=== PATIENT | female | born 2000 | race Caucasian/White ===

== ENCOUNTER 2023-12-30 11:57 | Emergency (ER) | payer BC, SELFPAY ==
[2023-12-30 11:57] VITALS: BMI 24.0
[2023-12-30 11:58] VITALS: BP 160/96
--- NOTE | 2023-12-30 12:25 | ED.GENMED ---
History of Present Illness
General
Chief Complaint: Head Injury
Time Seen by Provider: 12/30/23 12:04
History of Present Illness
History of Present Illness:
23-year-old female with history of prior concussion presenting to the emergency department for head injury. Patient reports early Monday morning, she was struck in the head by accident by a tree branch. Has not that she has intoxicated at the time
and when she woke up felt off and foggy. Notes send she has had some light sensitivity, nausea, head pain. She called her doctor who advised that she come to the hospital. Prior to arrival, she noted some tingling sensation to her right lower
extremity which concerned her and prompted her to come as well. Denies weakness to her extremities. Denies neck pain. Denies visual changes. Notes several concussions in the past. Denies fever. Denies additional acute medical complaints
Past History
Social History
Tobacco: Non-smoker
Alcohol: None
Drug: None
Phy Exam
Physical Exam
Physical Exam:
General: Well-appearing, no clinical signs of dehydration, nontoxic and in no acute distress
HEENT: protecting airway
Head: Small palpable hematoma to the right parietal scalp
Neck: appears supple
CV: Normal heart rate, regular rhythm
Resp: No accessory muscle use, no increased work of breathing, lungs clear to auscultation bilaterally
Abd: No distention
Extremities: No deformities, no swelling, no erythema. Distal pulses and sensation intact
Neuro: alert, no focal neurologic deficit
: deferred
Rectal: deferred
Psych: Normal affect
Skin: Intact
Course
Orders/Labs/Results
Orders:
Orders
12/30/23 12:15
CT Head W/o Iv Contrast Urgent
Comment:
Reason For Exam: struck in back of head, post-concussive symptoms
Vital Signs
Initial and Last Documented VS:
Initial Vital Signs
Temp Pulse Resp BP Pulse Ox
98.7 F 115 16 160/96 100
12/30/23 11:58 12/30/23 11:58 12/30/23 11:58 12/30/23 11:58 12/30/23 11:58
Last Documented Vital Signs
Temp Pulse Resp BP Pulse Ox
98.7 F 115 16 160/96 100
12/30/23 11:58 12/30/23 11:58 12/30/23 11:58 12/30/23 11:58 12/30/23 11:58
MDM/Problems Addressed
MDM/Problems Addressed:
23-year-old female presenting to the emergency department after a head injury. Vital signs on arrival are normal.
On exam patient is well-appearing, no acute distress or discomfort. Mild palpable hematoma, otherwise no significant signs of trauma. Suspect postconcussive syndrome. Given prior history of concussion and persistence of symptoms, will screen with
CT brain imaging. Patient does report some tingling to her right lower extremity, suspect unrelated. No neurovascular compromise on examination to the extremity.
13:40 - CT brain without acute intracranial abnormality. Continue to suspect postconcussive syndrome. At this time feel stable for discharge with continued outpatient supportive therapy. Brain rest advised. Return precautions discussed and
patient verbalized understanding
*Critical Care Note
Total Time (30-74mins, 75-104mins- exclusive of procedures): Not Applicable
ED Attending Note
-
Portions of this chart may have been created with voice recognition software.� Occasional wrong word or��sound alike� substitutions may have occurred due to the inherent limitations of voice recognition software.
Discharge Plan
Departure
Prescriptions:
No Action
nabumetone 500 MG tablet
1,000 mg PO DAILY
Referrals:
Daniella Stubbs [Family Provider] -
Interventions
Interventions:
*Risk Screen - Suicide Last Done: 12/30/23 12:02
*General Assessment Last Done: 12/30/23 12:10
*Neglect/Abuse Screening Last Done: 12/30/23 12:02
ED- Fall Risk Assessment Last Done: 12/30/23 12:10
*ED COVID-19 Vaccine History Last Done: 12/30/23 12:01
ED- Neurological Assessment Last Done: 12/30/23 12:10
ED-Skin Assessment Last Done: 12/30/23 12:10
Discharge Date and Time
Print Language: SAMOAN
[2023-12-30 13:49] VITALS: BP 124/87
== END 2023-12-30 14:11 | disposition home or self-care (01) ==
LOC: EMR 11:57
PROVIDERS: EMERGENCY PHYSICIAN Student in an Organized Health Care Education/Training Program
DX: S00.03XA Contusion of scalp, initial encounter (principal); R20.2 Paresthesia of skin; W22.09XA Striking against other stationary object, initial encounter
CPT/HCPCS: 99284; 70450

== ENCOUNTER 2024-11-07 14:04 | Emergency (ER) | payer BC, SELFPAY ==
[2024-11-07 14:08] VITALS: BP 145/99
[2024-11-07 14:28] LABS: Hematocrit 39.4 % (37.0-47.0); Hemoglobin 13.1 g/dL (12.0-16.0); Mean Corp Hgb Conc. 33.2 g/dL (33.0-37.0); Mean Corpuscular Volume 84.4 fL (81.0-99.0); Nucleated Red Blood Cells % 0 %; Platelet Count 228 10^3/uL (130-400); Red Cell Dist. Width 12.5 % (11.5-14.5)
[2024-11-07 14:29] LABS: Urine Character Clear (Clear)
[2024-11-07 14:38] LABS: ALT (SGPT) 23 U/L (0-35); AST (SGOT) 26 U/L (14-36); Albumin 5.2 g/dl (3.5-5.0); Alkaline Phosphatase 55 U/L (38-126); Blood Urea Nitrogen 13 mg/dl (7-17); Calcium 10.1 mg/dl (8.4-10.2); Carbon Dioxide 20 mmol/L (22-30); Chloride 104 mmol/L (98-107); Glucose 103 mg/dl (70-99); Lipase 172 U/L (23-300); Potassium 3.9 mmol/L (3.5-5.1); Sodium 134 mmol/L (135-145); Total Protein 8.8 g/dl (6.3-8.2); eGFR > 60.00
[2024-11-07 14:53] LABS: HCG, Serum Qualitative Screen Negative
--- NOTE | 2024-11-07 15:12 | ED.GENMED ---
History of Present Illness
General
Chief Complaint: Abdominal Pain
Source: patient and family
Exam Limitations: none
Time Seen by Provider: 11/07/24 15:04
Nursing documentation reviewed up to this point in time: agreed with
History of Present Illness
History of Present Illness:
24-year-old female with history of hyperlipidemia and asthma who presents to the ER for evaluation of abdominal pain. Patient reports onset of symptoms earlier this afternoon and have been constant since that time although she reports intensity is
waxing and waning. Pain is located in the right lower quadrant does not radiate. No clear triggering factors noted. She does note that she had a loose bowel movement while here in the emergency room and that seemed to alleviate some of her pain.
She denies any vomiting but has had some mild nausea. She has not had any fever or chills. She has not had any dysuria, hematuria, change in frequency. She denies any vaginal bleeding or discharge. She says her last menstrual period was last
week and was normal. She says that she has occasionally had right sided abdominal pains in the past but never to this degree. She was initially seen in urgent care and was sent to the emergency room to be evaluated for possible appendicitis.
Past History
Social History
Tobacco: Non-smoker
Alcohol: None
Drug: None
Review of Systems
Review of Systems
All Other Systems: ROS reviewed and negative except as documented in HPI and ROS
Constitutional: Denies fever or chills
Respiratory: Denies trouble breathing
Cardiac: Denies chest pain
ABD/GI: Reports abdominal pain, nausea and diarrhea; Denies vomiting
: Denies dysuria, frequency, flank pain or bleeding
Musculoskeletal: Denies neck pain or back pain
Neurological: Denies dizzy or headache
Phy Exam
Physical Exam
Physical Exam:
General: Awake, alert, oriented x3; no acute distress
Head: Normocephalic, atraumatic
Eyes: Conjunctiva normal, sclera anicteric
Throat: Airway intact, handling secretions
Neck: Trachea midline, supple without meningismus
Lungs: Breathing comfortably not in distress
Heart: Regular rate
Abd: Soft, non distended, tender to palpation in the right lower quadrant with no peritoneal signs, no palpable abdominal masses
Back: No CVA tenderness
Neuro: Gross intact
Skin: No rash in area of concern
Extremities: Warm and well-perfused
Scores
Heart Failure Risk
Heart Failure Risk Score: Not Applicable
Heart Score for Chest Pain Patients
STEMI patient?: Not applicable
Withdrawal Assessment of Alcohol
Withdrawal Assessment Completed?: Not applicable
Course
Orders/Labs/Results
Orders:
Orders
11/07/24 14:15
Add On- LAB Urgent
Tests Added?: HCG
CBC/With Diff [Complete Blood Count/With Diff] Urgent
CMP [Comprehensive Metabolic Panel] Urgent
HCG, Serum Qualitative Screen Urgent
Comment: ADD ON
Lipase Urgent
11/07/24 14:18
Urinalysis Reflex To Culture Urgent
Date Specimen was Collected: 11/07/24
Time Specimen was Collected: 14:15
11/07/24 15:05
CT Abd/pelvis W Iv Cont Urgent
Comment:
Reason For Exam: abd pain
Abnormal Lab Results
11/07/24
14:15
MPV 11.4 H fL
(7.4-10.4)
Sodium 134 L mmol/L
(135-145)
Carbon Dioxide 20 L mmol/L
(22-30)
Glucose 103 H mg/dl
(70-99)
Total Bilirubin 1.8 H mg/dl
(0.2-1.3)
Total Protein 8.8 H g/dl
(6.3-8.2)
Albumin 5.2 H g/dl
(3.5-5.0)
11/07/24 14:15
11/07/24 14:15
Vital Signs
Initial and Last Documented VS:
Initial Vital Signs
Temp Pulse Resp BP Pulse Ox
36.8 C 107 15 145/99 99
11/07/24 14:08 11/07/24 14:08 11/07/24 14:08 11/07/24 14:08 11/07/24 14:08
Last Documented Vital Signs
Temp Pulse Resp BP Pulse Ox
36.8 C 107 15 145/99 99
11/07/24 14:08 11/07/24 14:08 11/07/24 14:08 11/07/24 14:08 11/07/24 15:16
MDM/Problems Addressed
Differential Diagnosis Includes:
Appendicitis, ovarian cyst, enteritis, nephrolithiasis, UTI
MDM/Problems Addressed:
24-year-old female presents for evaluation of abdominal pain right lower quadrant started today and has been waxing and waning throughout the day. Tachycardic but otherwise normal vitals. Physical exam as above. She had lab work sent in triage
including a CBC and a CMP which showed no clinically significant abnormalities. Her hCG is negative. Urinalysis is bland. Will check CT abdomen pelvis. Monitor closely reassess after the above.
CT shows no acute abnormalities to account for symptoms�unremarkable appendix noted. At this point very low clinical suspicion for emergent pathology. Patient remains well-appearing on clinical reassessment. Given improvement of symptoms with
bowel movement could be IBS or minor enteritis. Ovarian cyst a consideration as well but nothing by exam or imaging to suggest that this is an ovarian torsion. In my judgment patient is stable for discharge at this point advised regarding bland
diet and good hydration over the next few days. Advised to return if symptoms worsening. Patient comfortable with this plan. All questions answered.
*Radiology
Radiology exam reviewed: radiology read reviewed
*Pulse Oximetry
SaO2: 99
Oxygen Mode of Delivery: Room air
Patient hypoxic: no (99%)
*Critical Care Note
Total Time (30-74mins, 75-104mins- exclusive of procedures): Not Applicable
Data Reviewed
Source: patient and family
ED Attending Note
-
Portions of this chart may have been created with voice recognition software.� Occasional wrong word or��sound alike� substitutions may have occurred due to the inherent limitations of voice recognition software.
Discharge Plan
Departure
Patient Disposition: Home (Routine Discharge)
Date of Disposition: 11/07/24
Time of Disposition: 16:46
Patient with high blood pressure during this ER visit?: Yes
Discharge Problem:
Abdominal pain
Instructions: Abdominal Pain
Prescriptions:
No Action
nabumetone 500 MG tablet
1,000 mg PO DAILY
Referrals:
Taylor Felder PA-C [Family Provider, [facility]] - Call in 1-3 days for appt
Activity Restrictions/Additional Instructions:
Thank you for visiting the Emergency Department at [facility].
1. Please schedule a follow up appointment as directed. Call first thing tomorrow morning to make an appointment.
2. If indicated, please take your medications as instructed and indicated on discharge paperwork.
3. If any of your symptoms do not improve, or persist, or become more severe within 6-12 hours, please return to the emergency department for further care.
4. Please return to the emergency department if you develop a headache, neck pain/stiffness, fever greater than 100.4F, chest pain, shortness of breath, persistent nausea, vomiting, slurred speech, difficulty walking, numbness/tingling, weakness,
signs of infection or any other symptoms that are worrisome to you.
Please call [phone] if you have any questions.
Interventions
Interventions:
*Risk Screen - Suicide Last Done: 11/07/24 14:08
*General Assessment Last Done: 11/07/24 14:08
*Neglect/Abuse Screening Last Done: 11/07/24 14:08
*ED COVID-19 Vaccine History Last Done: 11/07/24 14:08
Discharge Date and Time
Print Language: ROMANSH
[2024-11-07 16:53] VITALS: BP 116/72
== END 2024-11-07 17:15 | disposition home or self-care (01) ==
LOC: EMR 14:04
PROVIDERS: Emergency Medicine; EMERGENCY PHYSICIAN Emergency Medicine; FAMILY PHYSICIAN Physician Assistant Medical
DX: R10.31 Right lower quadrant pain (principal); E78.5 Hyperlipidemia, unspecified; J45.909 Unspecified asthma, uncomplicated
CPT/HCPCS: 99284; 74177; 80053; 81003; 83690; 84703; 85025; Q9967